=== PATIENT | female | born 1935 | race Caucasian/White ===

== ENCOUNTER 2016-12-07 00:46 | Inpatient (IN) | payer MEDICARE, OTHER ==
--- NOTE | ~2016-12-07 | CT71 ---
[facility] A Service of [facility] RADIOLOGY TEXT RESULTS PATIENT: ANSHU CHAN LOCATION: C3A 319-01 : 37 UNIT #: [id number] AGE: [address]: Randy Wolf MD SEX: F ORDER DR: [id number] [facility] [address] [facility]. [place], [place] [address] [id number] MR#: [id number] Acc #: [id number] NAME: ANSHU CHAN : 1935 SEX: F STUDY DATE/TIME: 12/07/2016 1:16 UNIT: CARLEEN ROOM: STUDY DESCRIPTION: CT Head Wo Contrast Attending Physician: Andrae Mcfadden M.D. Ordering Physician: Shauna Flores M.D. Primary Care Physician: Susan Abreu M.D. MEDICAL IMAGING REPORT This report is preliminary unless electronic signature is present EXAM CT head without IV contrast COMPARISON None. INDICATIONS 81-year-old female with posterior headache and increasing confusion after falling today. TECHNIQUE This CT exam was performed with one or more of the following radiation dose reduction techniques: automatic exposure control, adjustment of mA and/or kV according to patient size, and iterative reconstruction. FINDINGS Exam is limited by patient motion. Mastoid air cells, middle ears visualized paranasal sinuses are well-aerated. Evaluation for subtle acute fracture is limited by patient motion. No convincing evidence of acute fracture is seen. There are calcifications of the left vertebral artery as well as the bilateral cavernous internal carotid arteries extending into the intracranial segments bilaterally. No significant subcutaneous hematoma. There is mild cerebral and cerebellar volume loss. There is no mass effect. No abnormal extraaxial fluid collection. No evidence of acute intracranial hemorrhage. There is moderate chronic-appearing white matter periventricular small vessel ischemic change within the frontal lobes. No convincing evidence of cortical based ischemia. There are chronic-appearing lacunar infarcts suspected at the caudate heads bilaterally, possibly extending into the anterior limb of the internal capsules. There may also be tiny lacunar chronic infarcts of the lentiform nuclei. IMPRESSION [facility] A Service of [facility] RADIOLOGY TEXT RESULTS PATIENT: ANSHU CHAN LOCATION: C3A 319-01 : 37 UNIT #: [id number] AGE: [address]: Randy Wolf MD SEX: F ORDER DR: 1. Motion limited exam. No evidence of acute intracranial abnormality is seen. 2. There are arterial calcifications as well as gkgu-pk-knnrqopy cerebral and cerebellar volume loss with [id number]-[id number] chronic-appearing small vessel ischemic change. Dictated by... Marcelino Cisneros M.D. THIS IS AN ELECTRONICALLY VERIFIED REPORT Marcelino Cisneros M.D. at 12/11/2016 7:39 AM KOKO/mauricio TD: 12/07/2016 09:14 JOB #: [id number] MEDICAL IMAGING REPORT COPY
--- NOTE | ~2016-12-07 | HP ---
Unit #: [id number] #: [id number] Patient: ANSHU CHAN [id number] [address] [address] [id number] I MR#: [id number] NAME: ANSHU CHAN ROOM: 319 Age: 81 Sex: F Admission Date: 12/07/2016 : 1935 Attending Physician: Lan Weber M.D. Primary Care Physician: Susan Abreu M.D. HISTORY AND PHYSICAL CHIEF COMPLAINT Fall. HISTORY OF PRESENT ILLNESS The patient is a 81-year-old female with a history of hypertension brought to the emergency room status post fall. The patient was found to have a UTI with a potassium of 2.6. The patient had x-rays of the hip and that is negative for a fracture and the CT of the head is negative. The patient was scheduled to be discharged early this morning. However, at the time of discharge, the patient became more confused and disoriented. The patient has been admitted for the above reasons. The patient is unable to provide any further history. The patient stated the patient has three dogs at home and that she wants to go home to take care of the dogs. The patient denies any pain. She thinks she feels better and she has to go today. The patient denies any fever, chills, nausea and vomiting. The patient's history is obtained by speaking to the ER physician and the RN at the bedside. The patient's neighbor stated the patient has been with APS in the past and lives alone at home. No further history is available. PAST MEDICAL HISTORY History of hypertension. PAST SURGICAL HISTORY None. SOCIAL HISTORY No history of smoking, alcohol or any illicit drug abuse. FAMILY HISTORY Unavailable. ALLERGIES No known drug allergies. HOME MEDICATIONS From the record, she is on: 1. Norvasc. 2. Benazepril. 3. Detrol. 4. Meloxicam. 5. Zyrtec. 6. Zocor. 7. Singulair. Unit #: [id number] #: [id number] Patient: ANSHU CHAN REVIEW OF SYMPTOMS Unable to obtain as the patient is confused. PHYSICAL EXAMINATION VITAL SIGNS: Temperature 97.9. Pulse 99. Respiratory rate 16. Blood pressure 191/109. Sating 99% at room air. HEENT: Head: Atraumatic, normocephalic. Pupils equal, round and reactive to light and accommodation. Extraocular movements are intact. NECK: Supple. LUNGS: Clear to auscultation bilaterally. HEART: Regular rate and rhythm. ABDOMEN: Soft. Positive bowel sounds. EXTREMITIES: No cyanosis. No clubbing. No hip pain. NEUROLOGIC: The patient is alert and awake and confused. DIAGNOSTIC STUDIES LABORATORY: Glucose 112, BUN 12, creatinine 0.8, sodium 140, potassium 2.6, chloride 106, bicarb 26, calcium 9.2, total protein 7.1, albumin 4, AST 23, ALT 14, alkaline phosphatase 58. WBC 8.9, hemoglobin 13.9, hematocrit 40.5, platelets 261. UA shows 1+ leukocyte esterase and 25 to 50 urine WBC and negative bacteria. IMAGING: X-ray of the hip shows no convincing evidence of active fracture or dislocation of the left hip, although the evaluation is mildly limited by patient rotation as well as osteopenia, nonstandard positioning and body habitus related soft tissue attenuation. CT of the cervical spine shows no acute fracture or dislocation of the cervical spine. There are multilevel degenerative changes of the cervical spine as described in the body of the report. A 1.8 cm mixed density noted in the right lobe of the thyroid gland. A 1.4 cm density nodule which is favored to be in the left parotid gland possibly reflecting an adjacent abnormal lymph node. Bilateral cervical carotid artery calcifications. Interlobular septal thickening seen in both pulmonary apices. A finding which can be seen in CHF. CT of the head shows no evidence of acute intracranial abnormality seen. There are arterial calcifications as well as mild to moderate cerebral and cerebellar volume loss with mild to moderate chronic appearing small vessel ischemic changes. Chest x-ray shows there are no prior studies for comparison. There is mild pulmonary hyperexpansion and mild cardiomegaly but no acute abnormality seen. There is no consolidation, effusion or pneumothorax or suspicious nodules. ASSESSMENT 1. Altered mental status/confusion. 2. UTI. 3. Hypertension, uncontrolled. 4. Hyperkalemia. PLAN Admit the patient to the observation with telemetry. Continue with IV antibiotics, Rocephin. We will place on potassium protocol. The patient will resume on the home medications and we will have a Psyche evaluation and the social worker assistant for the home (1) and APS. We will repeat the labs again in the morning and further recommendations will follow as more lab results are available. Dictated by Lan Weber M.D. Unit #: [id number] #: [id number] Patient: ANSHU CHAN ROSA/fide TD: 12/07/2016 17:11 JOB #: [id number] HISTORY AND PHYSICAL X X HISTORY AND PHYSICAL
--- NOTE | ~2016-12-07 | CO ---
Unit #: [id number] #: [id number] Patient: LILIANE CHAN [id number] [facility] [address] [facility]. [place], [place] [address] [id number] I MR#: [id number] NAME: LILIANE CHAN ROOM: 319 Age: 81 Sex: F Admission Date: 12/09/2016 : 1935 Attending Physician: Marilyn Rodgers M.D. Primary Care Physician: Susan Abreu M.D. Consultation Date: 12/07/2016 CONSULTATION REPORT REASON FOR CONSULTATION Problem with memory and confusion. HISTORY OF PRESENT ILLNESS Liliane Chan is a 81-year-old white female, seen on 12/07/2016 in room 319 at [facility]. The patient was very sleepy and drowsy. The patient was unable to give any coherent information, confused. The patient information was obtained from the nursing staff. The patient was admitted with a fall. The patient also has a history of hypertension. The patient lives alone. No further history available. PAST PSYCHIATRIC HISTORY Unavailable. History of problem with memory. MEDICAL HISTORY AND MEDICATION HISTORY The patient is currently on Norvasc, benazepril, Detrol, meloxicam, Zyrtec, Zocor, Singulair. The patient was admitted with UTI, hypertension, hyperkalemia, altered mental status, confusion. FAMILY HISTORY AND SOCIAL HISTORY The patient has a poor support system. Lives alone. No history of any substance abuse. REVIEW OF SYSTEMS Complete review of systems is unremarkable. MENTAL STATUS EXAMINATION General appearance, the patient is dressed casually. Attention span and concentration were poor. Speech, slow. Orientation in place. Mood and affect, flat. Thought process, circumstantial. Thought content, guarded and paranoid. Recent and remote memory, poor. Language, able to name object. Fund of knowledge, poor. Insight and judgment, impaired. DIAGNOSES Psychiatric: 1. 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 2. Delirium, F05. 3. Major depressive disorder, recurrent, F33.2. Secondary diagnosis: Deferred. Medical diagnosis: Please refer to H and P. Stressors: Psychosocial stressors. Unit #: [id number] #: [id number] Patient: LILIANE CHAN ASSESSMENT AND PLAN 1. Supportive psychotherapy and psychoeducation were provided to the patient, but the patient is unable to comprehend much. 2. Recommending at this time to monitor the patient's mood and behavior closely. Advised to continue with current medication and add haloperidol 0.5 mg at bedtime for possible confusion, delirium. If needed, consider further adjustment of medication. We will continue to follow. Please feel free to call if any questions, telephone #[phone]. Dictated by... Julieth Abbasi/prisca TD: 12/10/2016 03:30 JOB #: [id number] CONSULTATION REPORT X Edis Luna MD X CONSULTATION REPORT
--- NOTE | ~2016-12-07 | CR150 ---
[facility] A Service of [facility] RADIOLOGY TEXT RESULTS PATIENT: ANSHU CHAN LOCATION: [facility] 319-01 : 37 UNIT #: [id number] AGE: [address]: Randy Wolf MD SEX: F ORDER DR: [id number] [place] [id number] [facility]. [place], [place] [address] [id number] E MR#: [id number] Acc #: [id number] NAME: ANSHU CHAN : 1935 SEX: F STUDY DATE/TIME: 12/07/2016 0:37 UNIT: CARLEEN ROOM: STUDY DESCRIPTION: CR Hip Min 2 Views Lt Attending Physician: Shauna Flores M.D. Ordering Physician: Shauna Flores M.D. Primary Care Physician: Susan Abreu M.D. MEDICAL IMAGING REPORT This report is preliminary unless electronic signature is present EXAM 2 views of the left hip COMPARISON None INDICATIONS 81-year-old female with left hip pain after falling tonight. FINDINGS Exam is limited by nonstandard positioning and patient rotation. There are bilateral pelvic calcifications favoring phleboliths. There are degenerative changes at the pubic symphysis. Exam is also limited by soft tissue attenuation and osteopenia. Left hip is anatomically aligned. There is moderate osteophyte formation of the left femoral head. No convincing evidence of acute fracture on this exam. IMPRESSION No convincing evidence of acute fracture or dislocation of the left hip, although evaluation is mildly limited by patient rotation as well as osteopenia, nonstandard positioning and body habitus related soft tissue attenuation. Dictated by... Marcelino Cisneros M.D. THIS IS AN ELECTRONICALLY VERIFIED REPORT Marcelino Cisneros M.D. at 12/10/2016 8:41 PM Jacey TD: 12/07/2016 08:02 JOB #: [id number] [facility] A Service [facility] RADIOLOGY TEXT RESULTS PATIENT: ANSHU CHAN LOCATION: [facility] 319-01 : 37 UNIT #: [id number] AGE: [address]: Randy Wolf MD SEX: F ORDER DR: MEDICAL IMAGING REPORT COPY
--- NOTE | ~2016-12-07 | ER ---
Unit #: [id number] #: [id number] Patient: ANSHU CHAN [id number] [address] [place], [place] [address] [id number] I MR#: [id number] NAME: ANSHU CHAN ROOM: 319 Sex: F Age: 81 : 1935 Service Date: 12/07/2016 Attending Physician: Lan Weber M.D. Admitting Physician: Lan Weber M.D. Primary Care Physician: Susan Abreu M.D. EMERGENCY DEPT PHYSICIAN NOTE Please see the written T sheet for the initial details of the encounter. Ms. Chan is a 81-year-old woman who was brought to the emergency department by EMS last night after a fall in which she sustained a hip injury. Initial evaluation confirmed that the patient complained of hip pain after a fall. She was uncertain if she also hit her head. The initial documented History and Physical also stated that the patient complained of some dysuria. As such, a hip x-ray, head CT, and a urinalysis were ordered. Head CT and cervical spine CT were negative. However, the patient's urine did show markers for infection. According to the record, the patient was in no apparent distress and seemed appropriate for discharge, and thus discharge was ordered and the patient was written a prescription for a urinary tract infection. However, this morning when the patient was to be discharge, the nurse noticed that the patient seemed somewhat confused, and the patient stated that she lived alone. Upon further questioning, it seemed that the patient was at a level of confusion that would preclude her from going home by herself. At this time, I was asked to reevaluate the patient for appropriateness for discharge. I independently examined the patient and conducted my own history and physical. The patient seemed very confused, was extremely tangential in her speech, talking about various unrelated topics, and required redirection multiple times. However, she was oriented to her environment and circumstances of her visit. She was unable to give critical details about family members that would be available to be contacted and even basic details about where she lived. As such, it was felt that the patient should be admitted for further workup of her apparent altered mental status, as well as to be treated for her previously diagnosed UTI. At this time, labs are ordered to further the workup of altered mental status. When the workup is completed, we will admit the patient to the hospital to continue her workup. Dictated by... Julieth Yo/paxton TD: 12/08/2016 18:52 JOB #: [id number] Unit #: [id number] #: [id number] Patient: ANSHU CHAN EMERGENCY DEPT PHYSICIAN NOTE X Andrae Mcfadden MD X EMERGENCY DEPARTMENT REPORT
--- NOTE | ~2016-12-07 | CO ---
Unit #: [id number] #: [id number] Patient: LILIANE CHAN [id number] [facility] [address] [facility]. [place], [place] [address] [id number] I MR#: [id number] NAME: LILIANE CHAN ROOM: 319 Age: 81 Sex: F Admission Date: 12/09/2016 : 1935 Attending Physician: Randy Wolf M.D. Primary Care Physician: Susan Abreu M.D. Consultation Date: 12/09/2016 CONSULTATION REPORT REASON FOR CONSULTATION Competency eval, history of confusion. HISTORY OF PRESENT ILLNESS Ms. Liliane Chan is a 81-year-old white female, seen in room 319 at [facility] on 12/09/2016. The patient was admitted to inpatient on 12/07/2016. The patient was admitted with a fall and confusion. The patient has a history of hypertension. The patient reports that she is feeling better and ready to go home. The patient has been with APS in the past and lives alone at home. The patient reports that she has a good support from her friends and reports ball dancing and enjoys that. The patient denied any use of drugs or alcohol. No history of any abuse. The patient was able to give any coherent history, but somewhat hard of hearing. PAST PSYCHIATRIC HISTORY Unremarkable. MEDICAL HISTORY Remarkable for history of hypertension. MEDICATION HISTORY The patient is on Norvasc, benazepril, Detrol, meloxicam, Zyrtec, Zocor, Singulair. ALLERGIES No known drug allergies. FAMILY HISTORY AND SOCIAL HISTORY The patient lives alone. Reports that she has a good support from family and friends. No history of any abuse. No history of any substance abuse. REVIEW OF SYSTEMS Complete review of systems unremarkable. MENTAL STATUS EXAMINATION General appearance, the patient is thin built, dressed casually, sitting comfortably in chair, unable to answer questions appropriately, made good eye contact. The patient's attention span and concentration was fair. The patient was somewhat hard of hearing and speak loudly. Speech was rapid and circumstantial. Oriented in place and person. Mood and affect were labile. Thought process was circumstantial. Thought content, the patient denied any thoughts of harming self or others or any auditory or Unit #: [id number] #: [id number] Patient: LILIANE CHAN visual hallucination. Recent and remote memory, fair to poor. The patient is having some difficulty with the daytime, year. Also noticed some problem with immediate and remote memory. Language, able to name object, repeat phrases. Fund of knowledge, fair. Insight and judgment, fair to slightly impaired. DIAGNOSES Psychiatric: 1. Delirium, F05, resolved. 2. Major neurocognitive disorder secondary to Alzheimer disease without behavioral disturbances, F02.80. Secondary diagnosis: Deferred. Medical diagnosis: Please refer to H and P. Stressors: Psychosocial stressors. ASSESSMENT/PLAN Based on the current examination, the patient does have deficits in recent and immediate memory, but the patient is alert and oriented in place. The patient understands about coming to the hospital and getting treatment. The patient at this time is able to make informed medical decision, unable to comment on competency issue as this is a legal matter. Recommending APS to investigate the home situation for the safety of patient as the patient will do better in a supervised living facility based on her medical condition. Please feel free to call if any questions, telephone # [phone]. At this time, the patient does not require any inpatient psychiatric treatment. Dictated by... Julieth Abbasi/percy TD: 12/10/2016 02:52 JOB #: [id number] CONSULTATION REPORT X Edis Luna MD X CONSULTATION REPORT
--- NOTE | ~2016-12-07 | EKG ---
PATIENT: ANSHU CHAN UNIT #: [id number] Ventricular Rate: 82 BPM Atrial Rate: 82 BPM P-R Interval: 186 ms QRS Duration: 74 ms Q-T Interval: 390 ms QTC Calculation(Bezet): 455 ms P Mesa: 46 degrees Calculated R Mesa: 43 degrees Calculated T Mesa: 50 degrees Diagnosis Line: Normal sinus rhythm Diagnosis Line: Normal ECG Diagnosis Line: No previous ECGs available Diagnosis Line: Confirmed by TRI ALANIS MD ([id number]) on Diagnosis Line: 12/08/2016 10:40:08 PM INTERPRETING MD: CASEY
--- NOTE | ~2016-12-07 | CR72 ---
[facility] A Service of [facility] RADIOLOGY TEXT RESULTS PATIENT: ANSHU CHAN LOCATION: [facility] 319-01 : 37 UNIT #: [id number] AGE: [address]: LJ LEPE MD SEX: F ORDER DR: [id number] [facility] [address] [facility]. [place], [place] [address] [id number] E MR#: [id number] Acc #: [id number] NAME: ANSHU CHAN : 1935 SEX: F STUDY DATE/TIME: 12/07/2016 8:32 UNIT: CARLEEN ROOM: STUDY DESCRIPTION: CR Chest Single View Portable Attending Physician: Andrae Mcfadden M.D. Ordering Physician: Andrae Mcfadden M.D. Primary Care Physician: Susan Abreu M.D. MEDICAL IMAGING REPORT This report is preliminary unless electronic signature is present EXAM Portable chest one-view 12/07/2016 HISTORY Short of air for 1 day. FINDINGS There are no prior studies for comparison. There is mild pulmonary hyperexpansion and mild cardiomegaly, but no acute abnormality is seen. There is no consolidation or effusion or pneumothorax or suspicious nodule. Dictated by... Edward Garcia M.D. THIS IS AN ELECTRONICALLY VERIFIED REPORT Edward Garcia M.D. at 12/08/2016 9:52 AM ED/nathan TD: 12/07/2016 11:48 JOB #: [id number] MEDICAL IMAGING REPORT COPY
--- NOTE | ~2016-12-07 | CT52 ---
[facility] A Service of [facility] [place] [facility] RADIOLOGY TEXT RESULTS PATIENT: ANSHU CHAN LOCATION: C3A 319-01 : 37 UNIT #: [id number] AGE: [address]: Randy Wolf MD SEX: F ORDER DR: [id number] [facility] [address] [facility]. [place], [place] [address] [id number] MR#: [id number] Acc #: [id number] NAME: ANSHU CHAN : 1935 SEX: F STUDY DATE/TIME: 12/07/2016 1:14 UNIT: CARLEEN ROOM: STUDY DESCRIPTION: CT Cervical Spine Wo Cont Attending Physician: Shauna Flores M.D. Ordering Physician: Shauna Flores M.D. Primary Care Physician: Susan Abreu M.D. MEDICAL IMAGING REPORT This report is preliminary unless electronic signature is present EXAM CT cervical spine without IV contrast COMPARISON None INDICATIONS 81-year-old female with neck pain after falling tonight. This CT exam was performed with one or more of the following radiation dose reduction techniques: automatic exposure control, adjustment of mA and/or kV according to patient size, and iterative reconstruction. FINDINGS There is a slightly heterogeneous appearing nodule in the right lobe of the thyroid gland measuring up to 1.8 cm. There are likely other low-density lesions within the left thyroid gland which are too small to characterize, largest of which measures up to 3 mm. There are bilateral cervical carotid artery calcifications. There is also a 1.4 cm nodule versus lymph node associated with the left parotid gland. Visualized airways widely patent. No acute findings in the pulmonary apices. There is interlobular septal thickening pulmonary apices, a finding which could reflect mild interstitial edema. There is dense calcification involving the aortic arch extending into the left subclavian and brachiocephalic arteries. Evaluation of the cervical spine is limited by motion. There is diffuse osteopenia. There is diffuse multilevel bilateral degenerative facet disease and mild multilevel uncinate hypertrophy bilaterally. These findings are causing severe neural foraminal narrowing on the right at C4-C5 and C5-C6. Cervical spine is anatomically aligned. There is no evidence of acute fracture. IMPRESSION 1. No acute fracture or dislocation of the cervical spine. Please note [facility]. [facility] A Service of [facility] RADIOLOGY TEXT RESULTS PATIENT: ANSHU CHAN LOCATION: C3A 319-01 : 37 UNIT #: [id number] AGE: [address]: Randy Wolf MD SEX: F ORDER DR: that evaluation of the lower cervical spine is limited by motion and therefore a subtle acute fracture would be difficult to exclude. There are multilevel degenerative changes of the cervical spine as described in the body of the report. These consist primarily of uncinate hypertrophy and degenerative facet disease. These findings are causing severe right-sided neural foraminal narrowing C4-C5 and C5-C6. 2. 1.8 cm mixed density nodule in the right lobe of the thyroid gland. Further evaluation with outpatient thyroid ultrasound is recommended. 3. 1.4 cm nodule which is favored be in the left parotid gland or possibly reflecting an adjacent abnormal lymph node. Consideration of further evaluation with ultrasound is recommended as a primary parotid neoplasm cannot be excluded. This would be easily amenable to ultrasound guided biopsy which should be considered. 4. Bilateral cervical carotid artery calcifications. 5. Interlobular septal thickening seen in both pulmonary apices, finding which can be seen in CHF. 1. Dictated by... Marcelino Cisneros M.D. THIS IS AN ELECTRONICALLY VERIFIED REPORT Marcelino Cisneros M.D. at 12/11/2016 7:28 AM Jacey TD: 12/07/2016 08:13 JOB #: [id number] MEDICAL IMAGING REPORT COPY
--- NOTE | ~2016-12-07 | DS ---
Unit #: [id number] #: [id number] Patient: ANSHU CHAN [id number] [address] [place], [place] [address] [id number] I MR#: [id number] NAME: ANSHU CHAN ROOM: 319 Age: 81 Sex: F Admission Date: 12/09/2016 : 1935 Discharge Date: 12/10/2016 Attending Physician: Randy Wolf M.D. Primary Care Physician: Susan Abreu M.D. DISCHARGE SUMMARY REASON FOR ADMISSION Fall. HISTORY OF PRESENT ILLNESS/HOSPITAL COURSE The patient is a 81-year-old female who resides at home alone with a history of hypertension, was brought to the emergency department status post fall. She was noted to have a UTI as well as a potassium up to 2.6. X-rays of the hip were negative for fracture. CT head was negative. The patient became confused and slightly disoriented through initial part of hospital stay and, therefore, laboratory studies were performed. Urinalysis was positive which later came back positive for Klebsiella UTI sensitive to Levaquin as well as Rocephin which she received while she was here. Secondary to confusional state as well as a foul odor and ill-kept state that patient presented with on day of admission, we became concerned about a possible home situation as well as underlying dementia. Therefore, we consulted Dr. Luna, psychiatry services. He said the patient was able to make informed medical decisions and she stated that she was just fine and she wished to go home. PT and OT evaluated the patient. Both services have cleared the patient and feel as though she is now currently at baseline and stable to be discharged home. Her hemoglobin at the time of discharge is 12. Laboratory studies reveal a normal BMP with potassium of 4.4. She will be reverted back to her home medications at time of discharge as well as a prescription for Levaquin 500 mg p.o. daily x7 days. FOLLOWUP Home health followup post discharge. FINAL DISCHARGE DIAGNOSES 1. Mental status changes secondary to Klebsiella urinary tract infection. 2. Status post fall at home with negative x-ray for fracture. 3. Hypertension. 4. Immobility syndrome. 5. Deconditioning. 6. Allergic rhinitis. 7. History of hypertension. 8. Hyperlipidemia. Unit #: [id number] #: [id number] Patient: ANSHU CHAN DISCHARGE MEDICATIONS 1. Detrol LA 4 mg p.o. daily. 2. Norvasc 5 mg p.o. daily. 3. Zocor 20 mg p.o. q.8. 4. Lotensin 10 mg p.o. daily. 5. Singulair 10 mg p.o. daily. 6. Levaquin 500 mg p.o. daily x7 days. DISCHARGE CONDITION Stable. DISCHARGE DISPOSITION Home. Dictated by... Julieth Mathias/skyler TD: 12/13/2016 05:35 JOB #: [id number] DISCHARGE SUMMARY X Randy Wolf MD X DISCHARGE SUMMARY
[~2016-12-07 00:46] MED LIST: AMLODIPINE BESYL5 MG PO; BENAZEPRIL HCL10 MG PO; DETROL LA PO; MELOXICAM15 MG PO; SINGULAIR PO; ZOCOR20 MG PO; ZYRTEC10 M2
[2016-12-07 03:47] LABS: URINE APPEARANCE CLEAR; URINE BILIRUBIN NEG (NEG); URINE BLOOD TRACE (NEG); URINE COLOR YELLOW; URINE GLUCOSE NEG (NEG); URINE KETONE TRACE (NEG); URINE LEUKOCYTE ESTERASE 1+ (NEG); URINE NITRATE NEG (NEG); URINE PROTEIN NEG (NEG); URINE SPECIFIC GRAVITY 1.009 (1.003-1.035); URINE UROBILINOGEN 0.2 MG/DL (NEG)
[2016-12-07 03:50] LABS: CULTURE INDICATED? YES; URBCS1 AUWI 0-2 /[HPF] (0-2); URINE BACTERIA AUWI NEG (NEGATIVE); URINE SQUAMOUS EPITHELIAL CELL NONE SEEN /[HPF]; UWBCS1 AUWI 25-50 (0-5)
[2016-12-07 03:53] LABS: URINE SOURCE CATH
[2016-12-07 09:30] LABS: BASOPHIL# 0.1 X10e3 (0-0.3); BASOPHIL% 0.8 % (0-2.5); EOSINOPHIL# 0.1 X10e3 (0-0.7); EOSINOPHIL% 1.3 % (0.0-7.0); HEMATOCRIT 40.5 % (35.0-45.0); HEMOGLOBIN 13.9 gm/dL (12.0-16.0); LYMPHOCYTE# 1.7 X10e3 (1.0-3.5); LYMPHOCYTE% 19.5 % (17.0-45.0); MEAN CELL VOLUME 85.1 FL (83-96); MEAN CORPUSCULAR HEMOGLOBIN 29.1 PG (28-34); MEAN CORPUSCULAR HGB CONC 34.3 g/dL (30-36); MEAN PLATELET VOLUME 7.8 FL (6.5-11.5); NEUTROPHIL% 67.4 % (40-75); PLATELET COUNT 261 X10e3 (140-420); RED BLOOD COUNT 4.76 X10e (3.90-5.30); RED CELL DISTRIBUTION WIDTH 14.5 % (11.0-15.5); WHITE BLOOD COUNT 8.9 X10e3 (4.0-10.5)
[2016-12-07 09:33] LABS: DIFF IND NO
[2016-12-07 10:20] LABS: ALKALINE PHOSPHATASE 58 U/L (32-92); ALT (SGPT) 14 U/L (10-40); AST (SGOT) 23 U/L (10-42); BILIRUBIN, DIRECT 0.2 mg/dL (0.0-0.2); BILIRUBIN,INDIRECT 1.1 mg/dL (0.0-0.9); BILIRUBIN,TOTAL 1.3 mg/dL (0.2-2.0); BLOOD UREA NITROGEN 12 mg/dL (9-23); CALCIUM SERUM 9.2 mg/dL (8.4-10.2); CARBON DIOXIDE 26 mmol/L (22-31); CHLORIDE 106 mmol/L (100-111); CREATININE SERUM 0.8 mg/dL (0.6-1.4); GLOM FILT RATE Estimated ABOVE60 mL/min (>60); GLUCOSE FASTING 112 mg/dL (70-110); PROTEIN TOTAL SERUM 7.1 g/dL (6.0-8.3); SODIUM 140 mmol/L (135-145)
[2016-12-07 10:22] LABS: POTASSIUM 2.6 mmol/L (3.5-5.1)
[2016-12-08 06:33] LABS: MAGNESIUM 2.1 mg/dL (1.6-3.0); POTASSIUM 4.4 mmol/L (3.5-5.1)
[2016-12-09 03:47] LABS: HEMATOCRIT 34.8 % (35.0-45.0); MEAN CORPUSCULAR HEMOGLOBIN 29.2 PG (28-34); MEAN CORPUSCULAR HGB CONC 33.9 g/dL (30-36); MEAN PLATELET VOLUME 7.9 FL (6.5-11.5); RED BLOOD COUNT 4.04 X10e (3.90-5.30); RED CELL DISTRIBUTION WIDTH 14.1 % (11.0-15.5); WHITE BLOOD COUNT 7.1 X10e3 (4.0-10.5)
[2016-12-09 03:52] LABS: HEMOGLOBIN 11.8 gm/dL (12.0-16.0)
[2016-12-09 04:12] LABS: CALCIUM SERUM 8.4 mg/dL (8.4-10.2); GLOM FILT RATE Estimated 56.8 mL/min (>60); MAGNESIUM 2.3 mg/dL (1.6-3.0); POTASSIUM 4.4 mmol/L (3.5-5.1)
[2016-12-10 06:00] LABS: HEMATOCRIT 35.8 % (35.0-45.0); MEAN CELL VOLUME 86.7 FL (83-96); MEAN CORPUSCULAR HGB CONC 33.4 g/dL (30-36); MEAN PLATELET VOLUME 7.9 FL (6.5-11.5); RED BLOOD COUNT 4.13 X10e (3.90-5.30); RED CELL DISTRIBUTION WIDTH 14.3 % (11.0-15.5); WHITE BLOOD COUNT 6.2 X10e3 (4.0-10.5)
[2016-12-10 06:44] LABS: BLOOD UREA NITROGEN 15 mg/dL (9-23); BUN/CREATININE RATIO 21.42; CALCIUM SERUM 8.9 mg/dL (8.4-10.2); CARBON DIOXIDE 26 mmol/L (22-31); CHLORIDE 107 mmol/L (100-111); CREATININE SERUM 0.7 mg/dL (0.6-1.4); GLOM FILT RATE Estimated ABOVE60 mL/min (>60); GLUCOSE FASTING 84 mg/dL (70-110); POTASSIUM 4.4 mmol/L (3.5-5.1); SODIUM 140 mmol/L (135-145)
[2016-12-10] MEDS ORDERED: ACETAMINOPHEN650 M1 PO (16:10)
[2016-12-10] MEDS ORDERED: LEVAQUIN PO (16:12)
== END 2016-12-10 17:10 | disposition home or self-care (01) | DRG 689 ==
LOC: CED 00:46 → CEDOF 11:58 → C3A PCU 12-09 15:55
PROVIDERS: Emergency Medicine; Family Medicine; Internal Medicine
DX: N39.0 Urinary tract infection, site not specified (principal); G92 Toxic encephalopathy; F33.2 Major depressive disorder, recurrent severe without psychotic features; E87.5 Hyperkalemia; G30.9 Alzheimer's disease, unspecified; F05 Delirium due to known physiological condition; F02.81 Dementia in other diseases classified elsewhere, unspecified severity, with behavioral disturbance; I10 Essential (primary) hypertension; W19.XXXA Unspecified fall, initial encounter; M62.3 Immobility syndrome (paraplegic); B96.1 Klebsiella pneumoniae [K. pneumoniae] as the cause of diseases classified elsewhere; J30.9 Allergic rhinitis, unspecified; E78.5 Hyperlipidemia, unspecified
CPT/HCPCS: 36415; 70450; 71010; 72125; 73502; 80048; 80076; 81003; 82947; 83735; 84132; 85025; 85027; 87086; 87088; 87186; 93005; 94760; 96374; 97110; 97116; 97161; 97165; 97530; 97532; 97535; 99285; G8978-GP; G8979-GP; G8987-GO; G8988-GO; J0696; J1650

== ENCOUNTER 2017-01-02 16:49 | Inpatient (IN) | payer MEDICARE, OTHER ==
--- NOTE | ~2017-01-02 | CO ---
Unit #: [id number] #: [id number] Patient: LILIANE CHAN [id number] [facility] [address] [facility]. [place], [place] [address] [id number] I MR#: [id number] NAME: LILIANE CHAN ROOM: 215 Age: 81 Sex: F Admission Date: 01/02/2017 : 1935 Attending Physician: Randy Wolf M.D. Primary Care Physician: Susan Abreu M.D. Consultation Date: 01/09/2017 CONSULTATION REPORT REASON FOR CONSULTATION Followup discussion. HISTORY OF PRESENT ILLNESS Ms. Liliane Chan is a 81-year-old female seen in room 215, bed 1, at [facility]. Patient has a sitter. According to staff, the patient was aggressive toward one-on-one staff, as well as having problems with the memory, mood lability, paranoia but patient eating good and sleeping good. Denied any thoughts of harming self or others. PAST PSYCHIATRIC HISTORY/COMPLETE REVIEW OF SYSTEM Unremarkable. MENTAL STATUS EXAMINATION General appearance - dressed casually, lying comfortably in bed. Attention span - concentration was poor. Speech - loud. Oriented in place and person. Mood and affect was labile. Thought process - circumstantial. Thought content - guarded and paranoid. Recent and remote memory - Poor. Language - Able to name objects, repeat phrases. Fund of knowledge - Fair to good, slightly impaired Insight and judgment - Fair to slightly impaired. DIAGNOSIS PSYCHIATRIC: Probable major neurocognitive disorder secondary to (1) disease with behavioral disturbances (F02.80). ASSESSMENT/PLAN 1. Recommending at this time to continue with the current treatment. At this time supportive psychotherapy and psychoeducation provided to the patient. 2. Patient has poor insight and poor judgment based on the current assessment. We will continue with the current treatment and a sitter for the patient's safety. [facility] is currently working and looking for appropriate placement for the patient for the patient's safety. Please feel free to call with any questions, telephone number . Dictated by... Edis Luna M.D. Unit #: [id number] #: [id number] Patient: LILIANE CHAN SZC/ts TD: 01/12/2017 15:31 JOB #: [id number] CONSULTATION REPORT Page 1 of 1 X Edis Luna MD CONSULTATION REPORT
--- NOTE | ~2017-01-02 | CO ---
Unit #: [id number] #: [id number] Patient: LILIANE CHAN [id number] [facility] [address] [facility]. [place], [place] [address] [id number] I MR#: [id number] NAME: LILIANE CHAN ROOM: 215 Age: 81 Sex: F Admission Date: 01/02/2017 : 1935 Attending Physician: Lan Weber M.D. Primary Care Physician: uSsan Abreu M.D. Consultation Date: 01/22/2017 CONSULTATION REPORT REASON FOR CONSULTATION Followup. HISTORY OF PRESENT ILLNESS Ms. Liliane Chan is a 81-year-old white female, seen on 01/22/2017 in room 215 at [facility]. The patient was diagnosed with dementia, confusion; however, the patient continues to be delusional, paranoid, mood lability, needing one-to-one monitoring. The patient is compliant with medication. Vital signs; temperature 97.8, pulse 86, respirations 18, blood pressure 159/99, oxygen saturation 98%. The patient seemed somewhat guarded and paranoid, but no aggression. The patient denied any suicidal or homicidal ideation. Continues to have problem with confusion, problem with memory. REVIEW OF SYSTEMS Complete review of systems is unremarkable except as mentioned above. MENTAL STATUS EXAMINATION General appearance, the patient dressed in hospital attire, sitting comfortably in chair. Attention span and concentration were fair. Speech, rapid. Oriented in self and place. Mood and affect, labile. Thought process, circumstantial. Thought content, guarded and paranoid. The patient was concerned and paranoid about the sitter somewhat delusional, but denied any thoughts of harming self or others. Recent and remote memory, poor. Language, intact. Fund of knowledge, poor. Insight and judgment, fair to slightly impaired. DIAGNOSIS Psychiatric: Major neurocognitive disorder secondary to Alzheimer disease with behavioral disturbances, F02.81. ASSESSMENT/PLAN 1. Supportive psychotherapy and psychoeducation provided to the patient. 2. Educated about benefits and side effects of medication and course and prognosis of illness. 3. Advised to continue with current medication and one-to-one monitoring for safety of the patient and currently working with the case aide about placement, please feel free to call if any questions, telephone #[phone]. We will make further changes in medication if needed. Dictated by... Edis Luna M.D. Unit #: [id number] #: [id number] Patient: LILIANE CHAN WILLIAMS/modl TD: 01/24/2017 01:40 JOB #: [id number] CONSULTATION REPORT Page 1 of 1 X Edis Luna MD X CONSULTATION REPORT
--- NOTE | ~2017-01-02 | CO ---
Unit #: [id number] #: [id number] Patient: LILIANE CHAN [id number] [facility] [address] [facility] [facility]. [place], [place] [address] [id number] I MR#: [id number] NAME: LILIANE CHAN ROOM: 215 Age: 81 Sex: F Admission Date: 01/02/2017 : 1935 Attending Physician: Randy Wolf M.D. Primary Care Physician: Susan Abreu M.D. Consultation Date: 01/10/2017 CONSULTATION REPORT REASON FOR CONSULTATION Followup. DISCUSSION Miss Liliane Chan is a 81-year-old female seen on January 10, 2017, in room 215 at [facility]. Patient has a sitter. Compliant, cooperative, re-directable. Mood was labile. Patient still wants to go home but is currently on 72-hour hold. Patient has poor insight and poor judgment. Currently, APS is working on home situation. Patient's guardianship petition hearing is today. Patient has a sitter. Mood was labile with no aggression. REVIEW OF SYSTEMS Complete review of systems unremarkable. MENTAL STATUS EXAMINATION General appearance: Patient is dressed casually and lying comfortably in bed. Attention span and concentration were poor. Speech loud. Oriented in place and person. Mood and affect was labile. Thought process was circumstantial and thought content guarded and paranoid but denied any thoughts of harming self or others. Recent and remote memory poor. Language: Able to name objects and repeat phrases. Fund of knowledge fair to poor. Insight and judgment fair to slightly impaired. DIAGNOSIS PSYCHIATRIC: Major neurocognitive disorder secondary to Alzheimer disease with behavioral disturbances F02.81. ASSESSMENT AND PLAN 1. Supportive psychotherapy and psychoeducation provided to patient. 2. Advised to continue with current medication. If needed, consider further adjustment of medication. We will wait for Adult Protective Services report and consider appropriate supervised placement for the patient. 3. Please feel free to call with any questions at [phone]. Dictated by... Julieth Abbasi TD: 01/12/2017 15:35 JOB #: [id number] Unit #: [id number] #: [id number] Patient: NIKO CHANRICIA CONSULTATION REPORT Page 1 of 1 X Edis Luna MD CONSULTATION REPORT
--- NOTE | ~2017-01-02 | CO ---
Unit #: [id number] #: [id number] Patient: LILIANE CHAN [id number] [facility] [address] [facility]. [place], [place] [address] [id number] I MR#: [id number] NAME: LILIANE CHAN ROOM: 215 Age: 81 Sex: F Admission Date: 01/02/2017 : 1935 Attending Physician: Lan Weber M.D. Primary Care Physician: Susan Abreu M.D. Consultation Date: 01/21/2017 CONSULTATION REPORT DISCUSSION Ms. Liliane Chan is a 81-year-old female, seen on 01/21/2017 in room 215 in [facility]. The patient was compliant, cooperative, somewhat anxious, nervous, withdrawn, poor appetite. The patient's vital signs; temperature 97.7, pulse 94, respirations 16, blood pressure 147/67, oxygen saturation 97%. The patient did not require any seclusion or holding, but still mood lability, paranoia, guarded, problem with memory, needing redirection, needing one-to-one monitoring, impulsive behavior. REVIEW OF SYSTEMS Complete review of systems unremarkable. MENTAL STATUS EXAMINATION General appearance; the patient dressed casually in hospital attire, sad, depressed, flat affect. Attention span and concentration, fair. Speech, rapid. Oriented in place and person. Mood and affect were labile. Thought process, circumstantial. Thought content, guarded and paranoid, but denied any thoughts of harming self or others. Recent and remote memory, poor. Language, intact. Fund of knowledge, fair. Insight and judgment, fair to slightly impaired. 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 ASSESSMENT/PLAN 1. Supportive psychotherapy and psychoeducation provided to the patient. 2. Educated about benefits and side effects of medication and course and prognosis of illness. 3. Advised to continue with current medication and therapeutic protocol and one-to-one monitoring for the patient's safety. Also discussed case with case managers about placement. Please feel free to call if any questions telephone #[phone]. Dictated by... Edis Luna M.D. WILLIAMS/prisca TD: 01/22/2017 05:38 JOB #: [id number] Unit #: [id number] #: [id number] Patient: LILIANE CHAN CONSULTATION REPORT Page 1 of 1 X Edis Luna MD CONSULTATION REPORT
--- NOTE | ~2017-01-02 | CO ---
Unit #: [id number] #: [id number] Patient: LILIANE CHAN [id number] [facility] [address] [facility]. [place], [place] [address] [id number] I MR#: [id number] NAME: LILIANE CHAN ROOM: 215 Age: 81 Sex: F Admission Date: 01/02/2017 : 1935 Attending Physician: Nguyễn Ramirez M.D. Primary Care Physician: Susan Abreu M.D. Consultation Date: 01/15/2017 CONSULTATION REPORT REASON FOR CONSULTATION Followup. DISCUSSION Ms. Liliane Chan is a 81-year-old female, seen in room 215, bed 1 at [facility] on 01/15/2017. The patient was pleasant and cooperative during interview. The patient has a sitter. The patient has a history of aggressive behavior, impulsive behavior but currently doing fine. The patient's vital signs stable temperature 98.2, pulse 139, respirations 16, blood pressure 143/78, oxygen saturation 100%. The patient continues to have problem with memory, but cooperative on the unit. The patient has a history of dementia, so poor insight, poor judgment, problem with memory. The patient did not show any aggressive behavior. REVIEW OF SYSTEMS Complete review of systems unremarkable. MENTAL STATUS EXAMINATION General appearance; the patient dressed casually. Attention span and concentration, fair. Speech was rapid in rate. Oriented in place and person. Mood and affect were labile. Thought process was circumstantial. Thought content, guarded, paranoid, but denied any thoughts of harming self or others. Recent and remote memory, poor. Language, able to name object and repeat phrases. Fund of knowledge, fair to slightly impaired. Insight and judgment, slightly impaired. DIAGNOSIS Psychiatric: Major neurocognitive disorder secondary to Alzheimer disease with behavioral disturbances, F02.81. ASSESSMENT AND PLAN 1. Supportive psychotherapy and psychoeducation provided to the patient. 2. Advised to continue with current medication. Educated about benefits and side effects of medication and course and prognosis of illness. At this time, currently working with Adult Protective Services and with the social work job titles for appropriate placement of the patient. The patient unable to return home, also working on guardianship. The patient is compliant with medication. Currently on Remeron 15 mg at bedtime, Ativan is 1 mg q.4 p.r.n. for severe agitation. We will continue to follow. If needed, consider further adjustment of medication. Please feel free to call if any questions, telephone #[phone]. Unit #: [id number] #: [id number] Patient: LILIANE CHAN Dictated by... Julieth Abbasi/prisca TD: 01/16/2017 23:52 JOB #: [id number] CONSULTATION REPORT Page 1 of 1 X Edis Luna MD X CONSULTATION REPORT
--- NOTE | ~2017-01-02 | DS ---
Unit #: [id number] #: [id number] Patient: ANSHU CHAN [id number] [address] [address] [id number] I MR#: [id number] NAME: ANSHU CHAN ROOM: 215 Age: 81 Sex: F Admission Date: 01/02/2017 : 1935 Discharge Date: 01/12/2017 Attending Physician: Nguyễn Ramirez M.D. Primary Care Physician: Susan Abreu M.D. DISCHARGE SUMMARY TRANSITION OF CARE SUMMARY REASON FOR ADMISSION Mental status change. The patient found in fecal matter at home. HISTORY OF PRESENT ILLNESS The patient is a 81-year-old female with history of dementia and recent hospital admission, who apparently was found at home after neighbor had called in, the patient was found down present in fecal matter. Apparently, her home had been recently condemned and she refused to leave and she was found with numerous pets throughout the home. She was subsequently admitted for the same and noted to have a positive urinalysis and was appropriately treated with IV antibiotics while she was here in the hospital. At this point in time, we are planning further disposition as currently her health is condemned and she is not able to make medical decisions on her own accord. She has been evaluated by Dr. Luna and through legal channels power of shadow graph weight operator will be assessed as well as guardianship. Once that is achieved, the patient will be transitioned into long-term care likely over the next few days. Her blood pressure is mildly elevated and she was initiated on Norvasc while here. Off and on she has had increased anxiety, agitation, and she has been treated with both p.o. and IM medications per the discretion of Dr. Luna. CURRENT CLINICAL DIAGNOSES 1. Mental status change, acute delirium on baseline dementia. 2. Poor social support/homelessness. 3. Urinary tract infection, treated. 4. Hypertension. 5. Dementia. 6. Failure to thrive. Discharge disposition to be determined by one of my associates at the time of discharge. Dictated by... Randy Wolf M.D. Unit #: [id number] #: [id number] Patient: ANSHU CHAN ISN/modl TD: 01/13/2017 06:37 JOB #: [id number] DISCHARGE SUMMARY Page 1 of 1 X Randy Wolf MD DISCHARGE SUMMARY
--- NOTE | ~2017-01-02 | EKG ---
PATIENT: ANSHU CHAN UNIT #: [id number] Ventricular Rate: 93 BPM Atrial Rate: 92 BPM QRS Duration: 76 ms Q-T Interval: 384 ms QTC Calculation(Bezet): 477 ms Calculated R Ray[place]: 47 degrees Calculated T [place]: 63 degrees Diagnosis Line: Baseline wander Sinus rhythm with 1st degree A-V Diagnosis Line: block Diagnosis Line: Abnormal ECG Diagnosis Line: When compared with ECG of 07-DEC-2016 08:24, Diagnosis Line: Junctional rhythm has replaced Sinus rhythm Diagnosis Line: Confirmed by MARNI PALMA MD ([id number]) on 01/06/2017 Diagnosis Line: 10:38:50 PM INTERPRETING MD: MINERVA DUMONT
--- NOTE | ~2017-01-02 | FU ---
[facility] Nutrition Therapy DATE: 01/20/17 Patient: ANSHU CHAN Physician: WILBUR Address: [address] [place] [address] Room/Bed: [address] [place] [address], Zip: [place] [address] Admit Date: 01/02/17 Date of : [birth year] Height: 5 2 Weight: 129 58.96 NUTRITION MONITORING/FOLLOW-UP: Reason: PT SEEN FOR FOLLOW-UP DX: UTI, LOW K+, CONFUSION Anthropometrics: 5'2", WT: 129# (59 KG) (ADMIT WEIGHT), BMI: 23.6 Labs: NO RECENT LABS Meds: ZOFRAN, REMERON, NACL, LAXATIVE, CYANOCOBALAMIN I&O's: 480/5, 1 BM NOTED Skin: ISSUES PREVIOUSLY NOTED Estimated Nutrition Needs: N/A Assessment: CHART REVIEWED AND EVENTS NOTED. PT SEEN FOR FOLLOW-UP. PT REPORTS GOOD PO INTAKE AND APPETITE, NO C/O N/V/D. SITTER AT BEDSIDE REPORTED PT HAVING A "HEARTY APPETITE", ATE 100% BREAKFAST THIS AM. OF NOTE, PT NOTED TO BE CONFUSED AT TIME OF VISIT. NO QUESTIONS AT THIS TIME. RD TO REMAIN AVAILABLE. PER CHART, AWAITING PLACEMENT AT THIS TIME. Dx: INABILITY TO MANAGE SELF-CARE R/T CLINICAL CONDITION, PMH AEB AWAITING PLACEMENT, NEED FOR SITTER. -ACTIVE ADEQUATE NUTRIENT INTAKE R/T GOOD APPETITE AEB SITTER AND PT REPORT ABOVE. Intervention: 1. REGULAR DIET + DOUBLE PORTIONS 2. RUBEN ENSURE TID Monitoring, Evaluation and Goals: GOALS MET 1. ORAL INTAKE; CONSUME >50% OF MEALS AND SUPPLEMENTS W/NO C/O N/V/D 2. WEIGHTS; PROMOTE WEIGHT MAINTENANCE MONITOR: -PO INTAKE/APPETITE -WEIGHTS -SUPPLEMENT INTAKE Recommendations: 1. CONTINUE TO ENCOURAGE PO AND SUPPLEMENT INTAKE -CONSIDER CHANGING CURRENT DIET ORDER TO [facility]: 01/20/17 Patient: ANSHU CHAN Physician: WILBUR Address: [address] [place] [address] Room/Bed: [address] [place] [address], Zip: [place] [address] Admit Date: 01/02/17 Date of : [birth year] Height: 5 2 Weight: [address] WILL F/U PER PROTOCOL PT IS MILDLY COMPROMISED Respectfully, KOLTON VILLA MS, RD, LD [facility] cc: client file
--- NOTE | ~2017-01-02 | CO ---
Unit #: [id number] #: [id number] Patient: LILIANE CHAN [id number] [facility] [address] [facility]. [place], [place] [address] [id number] I MR#: [id number] NAME: LILIANE CHAN ROOM: 215 Age: 81 Sex: F Admission Date: 01/02/2017 : 1935 Attending Physician: Randy Wolf M.D. Primary Care Physician: Susan Abreu M.D. Consultation Date: 01/06/2017 CONSULTATION REPORT REASON FOR CONSULTATION Confusion. HISTORY OF PRESENT ILLNESS Miss Liliane Chan is a 81-year-old white female seen on January 06, 2017, in room 215, bed 1, at [facility]. Patient was admitted on January 02 with UTI, low potassium, and confusion. Patient lives with her two dogs. Patient was pleasant and cooperative during interview. Patient reported that she is feeling better. She was able to answer questions appropriately. Reports some decrease in confusion. Denied any thoughts of harming self or others and denied any psychotic symptoms. But according to the family, patient was found lying on the floor in dog feces. But patient explained that she was just sitting on the floor and was not passed out. According to the nursing staff and the reports, law enforcement had condemned patient's home. Patient was admitted for the second time with similar complaints. APS is currently involved. PAST PSYCHIATRIC HISTORY History of dementia. PAST MEDICAL HISTORY 1. Hypertension. 2. Hyperlipidemia. 3. Degenerative joint disease. 4. Asthma. 5. Dementia. ALLERGIES No known drug allergies. MEDICATIONS Albuterol inhaler. FAMILY HISTORY/SOCIAL HISTORY Patient lives by herself. Poor support system. No history of any abuse or substance abuse. REVIEW OF SYSTEMS A complete review of system is unremarkable. MENTAL STATUS EXAMINATION General appearance: Patient is thin built and casually dressed. Attention span and concentration fair. Speech rapid. Oriented in place Unit #: [id number] #: [id number] Patient: LILIANE CHAN and person. Mood and affect were labile. Thought process was circumstantial and thought content guarded. She denied any thoughts of harming self or others or any psychotic symptoms. Recent and remote memory fair to poor. Using a lot of confabulation. Language fair. Fund of knowledge fair. Insight and judgment are fair to slightly impaired. DIAGNOSIS PSYCHIATRIC: Probable major neurocognitive disorder secondary to Alzheimer disease without behavioral disturbances, F02.80, and delirium, resolved, F05. SECONDARY DIAGNOSIS: Deferred. STRESSORS Psychosocial stressors. ASSESSMENT AND PLAN 1. Supportive psychotherapy and psychoeducation provided to patient. 2. Advised patient that at this time, patient to be living in a supervised living facility for safety, although patient does not agree at this time. Given patient's current circumstances, recommending Adult Protective Services to evaluate home situation and go accordingly. 3. Patient is to continue with current medication at this time. 4. Please feel free to call with any questions, . Dictated by... Edis Luna M.D. WILLIAMS/paxton TD: 01/07/2017 21:10 JOB #: [id number] CONSULTATION REPORT Page 1 of 1 X Edis Luna MD X CONSULTATION REPORT
--- NOTE | ~2017-01-02 | CO ---
Unit #: [id number] #: [id number] Patient: LILIANE CHAN [id number] [address] [place], [place] [address] [id number] I MR#: [id number] NAME: LILIANE CHAN ROOM: 215 Age: 81 Sex: F Admission Date: 01/02/2017 : 1935 Attending Physician: Randy Wolf M.D. Primary Care Physician: Susan Abreu M.D. Consultation Date: 01/07/2017 CONSULTATION REPORT REASON FOR CONSULTATION Followup. DISCUSSION Ms. Lilaine Chan is a 81-year-old white female, seen on 01/07/2017 at [facility] in room 215, bed 1. Ms. Momin was seen in room 215. The patient's mood was sad, dysphoric, irritable. The patient was eating her breakfast with the help of the staff. The patient has one-to-one staff at all time for the patient's safety. The patient continues to exhibit poor judgment and poor insight. The patient reports that she would like to go home and she does not understand about the home situation as currently her home is scheduled to be condemned by the police because of the home condition. APS is currently investigating. Her home condition was pretty bad according to the reports. farm forestry and garden workers is currently working on guardianship at this time and also to find her appropriate placement for the patient. The patient seems unable to take care of herself putting a danger about her safety. The patient was redirectable and cooperative. No aggressive behavior. REVIEW OF SYSTEMS Complete review of systems is unremarkable. MENTAL STATUS EXAMINATION General appearance, the patient dressed casually in hospital attire, lying in a propped up position. Attention span and concentration, poor. Speech, rapid. Oriented in place and person. Mood and affect were labile. Thought process, circumstantial. Thought content, guarded, paranoid, but denied any thoughts of harming self or others. Recent and remote memory, poor. Language, able to name object. Fund of knowledge, fair to slightly impaired. Insight and judgment, fair to slightly impaired. DIAGNOSES Psychiatric: 1. 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 Secondary diagnosis: Deferred. Medical diagnosis: Please refer to H and P. Stressors: Psychosocial stressor. ASSESSMENT/PLAN 1. Supportive psychotherapy and psychoeducation provided to the patient. Unit #: [id number] #: [id number] Patient: LILIANE CHAN 2. Based on the current examination, the patient is unable to make any informed medical decision at this time and will be benefitted with having a power of management expert. farm forest[employer] garden workers is currently working on that and also recommending the patient to be in a supervised living situation based on her last living condition. Please feel free to call if any questions, telephone #[phone]. Dictated by... Julieth Abbasi/prisca TD: 01/08/2017 04:10 JOB #: [id number] CONSULTATION REPORT Page 1 of 1 X Edis Luna MD X CONSULTATION REPORT
--- NOTE | ~2017-01-02 | CO ---
Unit #: [id number] #: [id number] Patient: LILIANE CHAN [id number] [facility] [address] [facility]. [place], [place] [address] [id number] I MR#: [id number] NAME: LILIANE CHAN ROOM: 215 Age: 81 Sex: F Admission Date: 01/02/2017 : 1935 Attending Physician: Lan Weber M.D. Primary Care Physician: Susan Abreu M.D. Consultation Date: 01/23/2017 CONSULTATION REPORT REASON FOR CONSULTATION Followup. DISCUSSION Ms. Liliane Chan is a 81-year-old female, seen in room 215, bed 1 at [facility] on 01/23/2017. The patient has a sitter. The patient continues to be paranoid, agitated, aggressive, impulsive, needing redirection. The patient has poor insight and poor judgment, compliant with medication. The patient was throwing food, agitated, and received p.r.n. Haldol. REVIEW OF SYSTEMS Complete review of systems is unremarkable. MENTAL STATUS EXAMINATION General appearance, the patient dressed casually. Attention span and concentration were poor. Speech, rapid. Oriented in time, place, and self. Mood and affect, labile. Thought process, circumstantial. Thought content; guarded, paranoid, delusional. Recent and remote memory, poor. Language, fair. Fund of knowledge, impaired. Insight and judgment, impaired. DIAGNOSES 1. 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 2. Psychosis, not otherwise specified, F29.0. ASSESSMENT AND PLAN 1. Supportive psychotherapy and psychoeducation provided to the patient. 2. Educated about benefits and side effects of medication and course and prognosis of illness. 3. Recommending at this time to add trazodone 50 mg at bedtime for sleep and Risperdal 1 mg b.i.d. for psychotic symptom. We will continue to follow. Please feel free to call if any questions, telephone #[phone]. Dictated by... Edis Luna M.D. WILLIAMS/prisca TD: 01/25/2017 04:31 JOB #: [id number] Unit #: [id number] #: [id number] Patient: LILIANE CHAN CONSULTATION REPORT Page 1 of 1 X Edis Luna MD CONSULTATION REPORT
--- NOTE | ~2017-01-02 | CO ---
Unit #: [id number] #: [id number] Patient: LILIANE CHAN [id number] [facility] [address] [facility]. [place], [place] [address] [id number] I MR#: [id number] NAME: LILIANE CHAN ROOM: 215 Age: 81 Sex: F Admission Date: 01/02/2017 : 1935 Attending Physician: Lan Weber M.D. Primary Care Physician: Susan Abreu M.D. Consultation Date: 01/20/2017 CONSULTATION REPORT REASON FOR CONSULTATION Followup. DISCUSSION Ms. Liliane Chan is a 81-year-old female, seen on 01/20/2017 in room 215, bed 1 at [facility]. The patient has a sitter. The patient slept well, eating good, still oriented in place and person. Mood and affect were labile. The patient did not require any seclusion, holding, or any p.r.n. medication. The patient still needing redirection, impulsive, mood lability, problem with memory. REVIEW OF SYSTEMS Complete review of systems is unremarkable. MENTAL STATUS EXAMINATION General appearance; the patient dressed casually, sitting in a propped up position, eating her breakfast. Attention span and concentration, fair. Speech, rapid. Oriented in place and person. Mood and affect, labile. Thought process, circumstantial. Thought content, guarded, paranoid, but denied any thoughts of harming self or others. Recent and remote memory, poor. Language, able to name object and repeat phrases. Fund of knowledge, fair to slightly impaired. Insight and judgment, slightly impaired. DIAGNOSIS Psychiatric: Major neurocognitive disorder secondary to Alzheimer disease with behavior disturbances, F02.81. ASSESSMENT/PLAN 1. Supportive psychotherapy and psychoeducation provided to the patient. 2. Educated about benefits and side effects of medication and course and prognosis of illness. 3. Continue with a sitter for the patient's safety. accounting manager controller is currently working on discharge planning. No court date has been set for guardianship so far. Still working on guardianship as well as appropriate placement. shake out worker tried to send looking for different placement such as [facility] and other place placement. In the meantime, continue with current treatment. Please feel free to call if any questions, telephone #[phone]. Dictated by... Edis Luna M.D. Unit #: [id number] #: [id number] Patient: LILIANE CHAN WILLIAMS/modl TD: 01/21/2017 03:31 JOB #: [id number] CONSULTATION REPORT Page 1 of 1 X Edis Luna MD X CONSULTATION REPORT
--- NOTE | ~2017-01-02 | CO ---
Unit #: [id number] #: [id number] Patient: LILIANE CHAN [id number] [place] [address] [facility]. [place], [place] [address] [id number] I MR#: [id number] NAME: LILIANE CHAN ROOM: 215 Age: 81 Sex: F Admission Date: 01/02/2017 : 1935 Attending Physician: Randy Wolf M.D. Primary Care Physician: Susan Abreu M.D. Consultation Date: 01/08/2017 CONSULTATION REPORT DISCUSSION Ms. Liliane Chan is a 81-year-old female, seen in room 215, bed 1, at [facility] on 01/08/2017. The patient has a sitter. The patient was cooperative and redirectable. Mood was labile. Poor insight, poor judgment, guarded. The patient is needing redirection, but no side effects from medication. No agitation. The patient was eating good. Vital signs; 98, 106, 20, 157/72, oxygen saturation 100%. REVIEW OF SYSTEMS Complete review of systems unremarkable. MENTAL STATUS EXAMINATION General appearance, the patient lying down comfortably in bed, dressed in hospital attire. Attention span and concentration, fair. Oriented in place and person. Mood and affect were labile. Speech, rapid and pressured. Thought process, circumstantial. Association, guarded and paranoid, but denied any thoughts of harming self or others. Recent and remote memory, poor. The patient was aggressive towards staff this morning towards sitter. Insight and judgment, impaired. 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 ASSESSMENT/PLAN 1. Supportive psychotherapy and psychoeducation provided to the patient. 2. Educated about benefits and side effects of medication and course and prognosis of illness. 3. Based on the current examination, the patient is unable to make informed medical decision. Has a poor insight. APS is currently involved recommending at this time to continue with current treatment at this time and look for appropriate placement for the patient, as the patient unable to live by herself at this time for the safety. Dictated by... Edis Luna M.D. [facility]/prisca TD: 01/10/2017 00:43 JOB #: [id number] Unit #: [id number] #: [id number] Patient: LILIANE CHAN CONSULTATION REPORT Page 1 of 1 X Edis Luna MD CONSULTATION REPORT
--- NOTE | ~2017-01-02 | DS ---
Unit #: [id number] #: [id number] Patient: ANSHU CHAN [id number] [address] [address] [id number] I MR#: [id number] NAME: ANSHU CHAN ROOM: 215 Age: 81 Sex: F Admission Date: 01/02/2017 : 1935 Discharge Date: Attending Physician: Lan Weber M.D. Primary Care Physician: Susan Abreu M.D. DISCHARGE SUMMARY SECOND ADDENDA The following medications have been discontinued, as they are not accepted at [facility]: 1. Cogentin 1 mg IM q.4 hours p.r.n. agitation. 2. Haldol injection 5 mg IM q.4 hours p.r.n. severe agitation. 3. Ativan 1 mg IM q.6 hours p.r.n. nervousness. Dictated by... Rudy QuevedoRNixon for Julieth Jimenez/stacia TD: 01/24/2017 15:08 JOB #: [id number] DISCHARGE SUMMARY Page 1 of 1 X Dora Bacon APRN DISCHARGE SUMMARY
--- NOTE | ~2017-01-02 | CO ---
Unit #: [id number] #: [id number] Patient: LILIANE CHAN [id number] [address] [place], [place] [address] [id number] I MR#: [id number] NAME: LILIANE CHAN ROOM: 215 Age: 81 Sex: F Admission Date: 01/02/2017 : 1935 Attending Physician: Nguyễn Ramirez M.D. Primary Care Physician: Susan Abreu M.D. Consultation Date: 01/17/2017 CONSULTATION REPORT DISCUSSION Ms. Liliane Chan is a 81-year-old white female, seen on 01/17/2017, in room 215. The patient has a sitter. The patient's mood continues to be labile, needing redirection and needing a sitter because of agitation, mood lability, bizarre behavior, taking out from her room. The patient's vital signs stable; temperature 97.7, heart rate 78, blood pressure 120/70, and oxygen saturation 98%. Chris friend was called. The patient was trying to leave room, bizarre behavior, and agitation. Subsequently, the patient was given Ativan 1 mg IM, which was effective. The patient needed p.r.n. Ativan last night because of agitation and aggression, still having problem with memory. REVIEW OF SYSTEMS Complete review of systems is unremarkable except as mentioned above. MENTAL STATUS EXAMINATION General appearance, the patient dressed casually in hospital attire. Attention span and concentration was poor. Speech, rapid. Oriented in place and person. Mood and affect were labile. Thought process, circumstantial. Thought content, guarded and paranoid, but denied any thoughts of harming self or others. Recent and remote memory, poor. Language, able to name object and repeat phrases. Fund of knowledge, fair to slightly impaired. Insight and judgment, slightly impaired. DIAGNOSIS Psychiatric: Major neurocognitive disorder secondary to Alzheimer disease with behavioral disturbances, F02.81. ASSESSMENT/PLAN 1. Supportive psychotherapy and psychoeducation provided to the patient. 2. Educated about benefits and side effects of medication and course and prognosis of illness. We will continue with current medication combination and continue with a sitter for the patient's safety. The patient's nursing home social worker is currently working on discharge planning. Please refer to discharge planning note on 01/17/2017. Dictated by... Julieth Abbasi/prisca TD: 01/19/2017 13:42 JOB #: [id number] Unit #: [id number] #: [id number] Patient: LILIANE CHAN CONSULTATION REPORT Page 1 of 1 X Edis Luna MD X CONSULTATION REPORT
--- NOTE | ~2017-01-02 | HP ---
Unit #: [id number] #: [id number] Patient: ANSHU CHAN [id number] [address] [place], [place] [address] [id number] I MR#: [id number] NAME: ANSHU CHAN ROOM: 49370 Age: 81 Sex: F Admission Date: 01/02/2017 : 1935 Attending Physician: Rosa Arevalo M.D. Primary Care Physician: Susan Abreu M.D. HISTORY AND PHYSICAL CHIEF COMPLAINT UTI, confusion and hypokalemia. HISTORY This 81-year-old female with hypertension, degenerative joint disease, dementia, is admitted for confusion. Patient was last admitted to this facility 12/07/2016 for a fall associated with urinary tract infection and hypokalemia. She was seen in consultation by Dr. Luna who thought that likely she did have major neurocognitive disorder secondary to Alzheimer disease with behavioral disturbances. Patient went home. She lives with her dogs. I am told that she was lying on the floor with dog feces around her. Law enforcement had condemned her home. She was brought to his emergency department where she denies complaints. She was found to have a urinary tract infection and hypokalemia again. She states that she does not eat much as she does not want to gain weight, does not really remember what occurred earlier today except that she states that she wanted to lie down on the floor but did not fall and denies urinary symptoms. In the emergency room she was given 40 mEq of potassium and one tablet of Bactrim DS. PAST MEDICAL HISTORY 1. Hypertension. 2. Hyperlipidemia. 3. DJD. 4. Asthma. 5. Dementia. ALLERGIES No known drug allergies. HOME MEDICATIONS P.r.n. albuterol inhaler. FAMILY HISTORY Unobtainable. SOCIAL HISTORY The patient states that she lives with her dogs. She is a lifelong nonsmoker, does not drink alcohol. REVIEW OF SYSTEMS Unit #: [id number] #: [id number] Patient: ANSHU CHAN Difficult to obtain as patient denies any problems. PHYSICAL EXAMINATION GENERAL: Pleasant, mildly hard of hearing 81-year-old female currently in no acute distress. VITAL SIGNS: Temperature 98. Pulse 101. Respirations 16. Blood pressure 156/90. O2 saturation 100% on room air. HEENT: Eyes PERRLA, extraocular muscles are intact. Pharynx is benign. NECK: Supple, without adenopathy or thyromegaly. CHEST: Clear. CARDIAC: Normal S1 and S2, without S3, S4 or murmur. ABDOMEN: Bowel sounds are present. No hepatosplenomegaly, tenderness or masses. There is a reducible umbilical hernia. EXTREMITIES: Mild edema noted bilaterally. Pedal pulses are present. NEUROLOGIC EXAM: Patient is awake, alert. She is oriented to person and place but not to year. Her cranial nerves are intact except that she is hard of hearing. She has equal strength throughout. DIAGNOSTIC STUDIES LABORATORY: Hematocrit is 43.3, normal white count, platelet count. SMA-12: Glucose 123, potassium 2.9. Urine 2+ leukocyte esterase, positive glucose, 100 to 200 red cells, 5 to 10 white cells, 2+ bacteria but many squamous epithelial cells. CARDIOVASCULAR: EKG normal sinus rhythm, rate 93. Q noted in lead III which was noted previously. Unchanged from before. ASSESSMENT 1. Patient was lying on the floor of her house with dog feces around her. House has been condemned by law enforcement. She does not remember what occurred, denies fall. 2. Dementia. 3. Hypokalemia. 4. Urinary tract infection. 5. History of hypertension. Patient takes no medications at present. 6. History of asthma. PLANS 1. Social Work consultation. 2. Replace potassium, check magnesium. 3. Antibiotics pending cultures. 4. Check B12 level, thyroid function test. Dictated by Rosa Arevalo M.D. AML/cf TD: 01/02/2017 21:43 JOB #: [id number] Unit #: [id number] #: [id number] Patient: ANSHU CHAN HISTORY AND PHYSICAL Page 1 of 1 X Rosa Arevalo MD HISTORY AND PHYSICAL
--- NOTE | ~2017-01-02 | CO ---
Unit #: [id number] #: [id number] Patient: LILIANE CHAN [id number] [facility] [address] [facility]. [place], [place] [address] [id number] I MR#: [id number] NAME: LILIANE CHAN ROOM: 215 Age: 81 Sex: F Admission Date: 01/02/2017 : 1935 Attending Physician: Lan Weber M.D. Primary Care Physician: Susan Abreu M.D. Consultation Date: 01/24/2017 CONSULTATION REPORT REASON FOR CONSULTATION Followup. DISCUSSION Ms. Liliane Chan is a 81-year-old female, seen in room 215, bed 1 on 2-E Unit at [facility] on 01/24/2017. The patient was aggressive, impulsive, and threw food at staff. Received Haldol. The patient was aggressive, agitated, paranoid, but currently on Cogentin, haloperidol, Ativan p.r.n. The patient is still having problem with the aggression, mood lability, paranoia. Currently, has one-on-one monitoring. REVIEW OF SYSTEMS Complete review of systems is unremarkable except for agitation. MENTAL STATUS EXAMINATION General appearance; the patient dressed in hospital attire. Attention span and concentration, fair to poor. Speech was rapid. Oriented in place and person. Mood and affect, labile. Thought process, circumstantial. Thought content; guarded and paranoid. Recent and remote memory, poor. Language, fair. Fund of knowledge, fair to slightly impaired. Insight and judgment, impaired. DIAGNOSIS Psychiatric: Major neurocognitive disorder secondary to Alzheimer disease with behavioral disturbances, F02.81. ASSESSMENT/PLAN Advised to continue with current medications, haloperidol p.r.n., Risperdal 1 mg b.i.d., and trazodone 50 mg at bedtime. We will continue to follow. The patient will be going to [place] [facility] Please feel free to call if any questions. Dictated by... Edis Luna M.D. WILLIAMS/prisca TD: 01/25/2017 06:30 JOB #: [id number] Unit #: [id number] #: [id number] Patient: BENNIE CHANIA CONSULTATION REPORT Page 1 of 1 X Edis Luna MD CONSULTATION REPORT
--- NOTE | ~2017-01-02 | DS ---
Unit #: [id number] #: [id number] Patient: ANSHU CHAN [id number] [address] [place], [place] [address] [id number] MR#: [id number] NAME: ANSHU CHAN ROOM: 215 Age: 81 Sex: F Admission Date: 01/02/2017 : 1935 Discharge Date: Attending Physician: Lan Weber M.D. Primary Care Physician: Susan Abreu M.D. DISCHARGE SUMMARY ADDENDUM HOSPITAL COURSE The patient has had no essential change in her condition since the previous transition of care/discharge summary. The patient has continued to be confused with periods of agitation, to the point of throwing a muffin at the nurse this morning at breakfast. The patient has been followed in close consultation by Dr. Edis Luna. Her medications have been adjusted by him and at this time the patient is in bed resting with a sitter at the bedside. The patient has been accepted to [facility] under skin care, with the plan then for the patient to become long-term care status. DISCHARGE MEDICATIONS 1. Albuterol sulfate 3 ml nebulized q.6 h. p.r.n. shortness of air. 2. Tylenol 650 mg p.o. q.4 h. p.r.n. pain. 3. Remeron 15 mg p.o. at bedtime. 4. Desyrel 50 mg p.o. at bedtime p.r.n. sleep. 5. Lomotil 2.5 mg p.o. q.6 h. p.r.n. loose stool. 6. Diphenhydramine/HCL 25 mg p.o. q.4 h. p.r.n. itching. 7. Cogentin 1 mg p.o. q.4 h. p.r.n. severe agitation. 8. Cogentin injection 1 mg IM q.4 h. p.r.n. agitation as an alternate route of administration. 9. Haldol 5 mg p.o. q.4 h. p.r.n. severe agitation. 10. Haldol injection 5 mg IM q.4 h. p.r.n. severe agitation as an alternate rout of administration. 11. Risperdal 1 mg p.o. b.i.d. 12. Ativan 1 mg IM q.6 h. p.r.n. nervousness as an alternate route of administration. 13. Ativan 1 mg p.o. q.4 h. p.r.n. agitation (prescription written by Dr. Weber for Ativan 1 mg 1 p.o. q.4 h. p.r.n. agitation, #10 with no refill). 14. Norvasc 2.5 mg p.o. daily for hypertension. 15. Laxative of choice p.r.n. constipation. 16. Cyanocobalamin 1000 mcg IM q. Friday. DISCHARGE CONDITION Stable. [place] [facility] [place] [facility] Unit and has a bed available today. IV access will be discontinued prior to discharge. Unit #: [id number] #: [id number] Patient: CHAN,ANSHU DIET The patient is to continue with regular diet as tolerated. Please note this patient has been evaluated by and the patient's discharge has been discussed with Dr. Weber. He has cleared the patient for discharge today. Dictated by... Dora Bacon A.P.R.N. for Julieth Jimenez/sarmad TD: 01/24/2017 13:58 JOB #: [id number] DISCHARGE SUMMARY Page 1 of 1 X Dora Bacon APRN X DISCHARGE SUMMARY
--- NOTE | ~2017-01-02 | A ---
[facility] Nutrition Therapy DATE: 01/13/17 Patient: ANSHU CHAN Physician: WILBUR Address: [address] [place] [address] Room/Bed: [address] [place] [address], Zip: [place] [address] Admit Date: 01/02/17 Date of : 39 Height: 5 2 Weight: 129 58.96 NUTRITIONAL ASSESSMENT: REASON: LOS 81 yo female admitted for UTI, confusion, hypoalemia PMH: HTN, HLD, degenerative joint disease, asthma, neurocognitive disorder 2' Alzheimer's disease with behavioral disturbances Anthropometrics: Ht: 5'2" Wt range: 51.4-58.6 kg (113-129#) BMI: 20.7-23.6 Labs: Gluc 112, POC 126 Meds: Zofran, Remeron, NaCl I/O & Bowel function: last BM 01/10 Skin Integrity: Bruises (scattered), hernia (umbrilicus), no edema noted Assessment: Chart reviewed, events noted. Per chart, pt is awaiting guardianship and is currently homeless. Pt was confused during visit. Pt reports good appetite. Per sitter, pt consumes 100% of meals. Pt was getting Ensure shakes prior. See recommendations below. Dx: Inability to manage self-care RT clinical condition, PMH AEB awaiting placement, need for sitter. Intervention: 1. Ensure TID 2. Regular diet Monitoring, Evaluation and Goals: 1. PO intake; consume >75% of meals and supplements 2. Weight; prevent unintentional weight loss, promote weight maintenance 3. Labs; WNL: gluc Recommendations: 1. Order chocolate Ensure shakes TID. 2. Continue to encourage adequate intake. Pt is at a mild nutritional risk. RD will f/u per protocol. [facility] Nutrition Therapy DATE: 01/13/17 Patient: ANSHU CHAN Physician: WILBUR Address: [address] [place] [address] Room/Bed: [address] [place] [address], Zip: [place] [address] Admit Date: 01/02/17 Date of : [birth year] Height: 5 2 Weight: 129 58.96 Respectfully, Marysol Rich, Property And Equipment Clerk Kaiser Maurice MS, RD, LD Food and Nutritional Services [facility] cc: client file
[2017-01-02 16:24] LABS: BASOPHIL# 0.1 X10e3 (0-0.3); BASOPHIL% 0.9 % (0-2.5); EOSINOPHIL# 0.1 X10e3 (0-0.7); EOSINOPHIL% 1.8 % (0.0-7.0); HEMATOCRIT 43.3 % (35.0-45.0); HEMOGLOBIN 14.3 gm/dL (12.0-16.0); LYMPHOCYTE# 1.5 X10e3 (1.0-3.5); LYMPHOCYTE% 19.1 % (17.0-45.0); MEAN CELL VOLUME 86.6 FL (83-96); MEAN CORPUSCULAR HEMOGLOBIN 28.6 PG (28-34); MEAN PLATELET VOLUME 8.8 FL (6.5-11.5); MONOCYTE# 0.9 X10e3 (0-1.0); MONOCYTE% 12.1 % (3.0-12.0); NEUTROPHIL# 5.1 X10e3 (1.5-7.1); NEUTROPHIL% 66.1 % (40-75); PLATELET COUNT 205 X10e3 (140-420); RED CELL DISTRIBUTION WIDTH 14.1 % (11.0-15.5); WHITE BLOOD COUNT 7.7 X10e3 (4.0-10.5)
[2017-01-02 16:37] LABS: DIFF IND NO
[~2017-01-02 16:49] MED LIST changes: +ACETAMINOPHEN650 M1 PO; +LEVAQUIN PO
[2017-01-02 17:06] LABS: BILIRUBIN, DIRECT 0.2 mg/dL (0.0-0.2); BILIRUBIN,INDIRECT 1.1 mg/dL (0.0-0.9); BILIRUBIN,TOTAL 1.3 mg/dL (0.2-2.0); CALCIUM SERUM 9.3 mg/dL (8.4-10.2); GLOM FILT RATE Estimated 53.6 mL/min (>60); PROTEIN TOTAL SERUM 6.7 g/dL (6.0-8.3)
[2017-01-02 17:09] LABS: POTASSIUM 2.9 mmol/L (3.5-5.1)
[2017-01-02 18:14] LABS: URINE SOURCE CLEAN CATCH
[2017-01-02 18:26] LABS: URINE APPEARANCE TURBID; URINE BILIRUBIN NEG (NEG); URINE BLOOD 1+ (NEG); URINE COLOR YELLOW; URINE GLUCOSE 500 MG/DL (NEG); URINE KETONE NEG (NEG); URINE LEUKOCYTE ESTERASE 2+ (NEG); URINE NITRATE NEG (NEG); URINE PH 5.5 (5-8); URINE PROTEIN NEG (NEG); URINE SPECIFIC GRAVITY 1.018 (1.003-1.035)
[2017-01-02 18:29] LABS: CULTURE INDICATED? YES; URBCS1 AUWI 100-200 /[HPF] (0-2); URINE BACTERIA AUWI 2+ (NEGATIVE); URINE SQUAMOUS EPITHELIAL CELL MANY /[HPF]
[2017-01-03] MEDS ORDERED: BAYER CHEWABLE81 MG PO (00:44)
[2017-01-03 07:56] LABS: BASOPHIL# 0.1 X10e3 (0-0.3); BASOPHIL% 1.1 % (0-2.5); EOSINOPHIL# 0.2 X10e3 (0-0.7); EOSINOPHIL% 3.7 % (0.0-7.0); HEMATOCRIT 36.7 % (35.0-45.0); LYMPHOCYTE# 1.8 X10e3 (1.0-3.5); LYMPHOCYTE% 29.4 % (17.0-45.0); MEAN CELL VOLUME 86.6 FL (83-96); MEAN CORPUSCULAR HEMOGLOBIN 28.6 PG (28-34); MEAN PLATELET VOLUME 8.7 FL (6.5-11.5); MONOCYTE# 0.9 X10e3 (0-1.0); MONOCYTE% 14.7 % (3.0-12.0); NEUTROPHIL# 3.1 X10e3 (1.5-7.1); NEUTROPHIL% 51.1 % (40-75); PLATELET COUNT 187 X10e3 (140-420); RED BLOOD COUNT 4.23 X10e (3.90-5.30); WHITE BLOOD COUNT 6.2 X10e3 (4.0-10.5)
[2017-01-03 07:58] LABS: DIFF IND NO; HEMOGLOBIN 12.1 gm/dL (12.0-16.0)
[2017-01-03 08:41] LABS: THYROID STIMULATING HORMONE 0.36 uIU/ml (0.34-5.60)
[2017-01-03 08:47] LABS: BUN/CREATININE RATIO 24.28; CALCIUM SERUM 8.6 mg/dL (8.4-10.2); CREATININE SERUM 0.7 mg/dL (0.6-1.4); GLOM FILT RATE Estimated 82.4 mL/min (>60); MAGNESIUM 2.1 mg/dL (1.6-3.0); POTASSIUM 3.7 mmol/L (3.5-5.1)
[2017-01-03 08:48] LABS: FREE THYROXIN (T4) 1.13 ng/dL (0.58-1.64)
[2017-01-04 08:17] LABS: HEMATOCRIT 41.5 % (35.0-45.0); HEMOGLOBIN 13.5 gm/dL (12.0-16.0); MEAN CELL VOLUME 87.2 FL (83-96); MEAN CORPUSCULAR HEMOGLOBIN 28.4 PG (28-34); MEAN CORPUSCULAR HGB CONC 32.5 g/dL (30-36); RED BLOOD COUNT 4.75 X10e (3.90-5.30); RED CELL DISTRIBUTION WIDTH 13.9 % (11.0-15.5); WHITE BLOOD COUNT 4.5 X10e3 (4.0-10.5)
[2017-01-04 08:46] LABS: BUN/CREATININE RATIO 15.55; CALCIUM SERUM 8.7 mg/dL (8.4-10.2); CREATININE SERUM 0.9 mg/dL (0.6-1.4); GLOM FILT RATE Estimated 60.9 mL/min (>60); MAGNESIUM 2.3 mg/dL (1.6-3.0); POTASSIUM 3.9 mmol/L (3.5-5.1)
[2017-01-05 10:22] LABS: HEMATOCRIT 40.4 % (35.0-45.0); HEMOGLOBIN 13.2 gm/dL (12.0-16.0); MEAN CELL VOLUME 87.3 FL (83-96); MEAN CORPUSCULAR HEMOGLOBIN 28.6 PG (28-34); MEAN CORPUSCULAR HGB CONC 32.7 g/dL (30-36); MEAN PLATELET VOLUME 8.8 FL (6.5-11.5); RED BLOOD COUNT 4.62 X10e (3.90-5.30); WHITE BLOOD COUNT 4.8 X10e3 (4.0-10.5)
[2017-01-05 10:49] LABS: BUN/CREATININE RATIO 21.42; CALCIUM SERUM 8.7 mg/dL (8.4-10.2); CREATININE SERUM 0.7 mg/dL (0.6-1.4); GLOM FILT RATE Estimated 82.4 mL/min (>60)
[2017-01-22 09:06] LABS: CALCIUM SERUM 9.1 mg/dL (8.4-10.2); CREATININE SERUM 0.7 mg/dL (0.6-1.4); GLOM FILT RATE Estimated 82.4 mL/min (>60); POTASSIUM 4.5 mmol/L (3.5-5.1)
[2017-01-23 11:07] LABS: HEMATOCRIT 48.2 % (35.0-45.0); HEMOGLOBIN 15.8 gm/dL (12.0-16.0); MEAN CELL VOLUME 88.2 FL (83-96); MEAN CORPUSCULAR HGB CONC 32.8 g/dL (30-36); MEAN PLATELET VOLUME 7.3 FL (6.5-11.5); RED BLOOD COUNT 5.47 X10e (3.90-5.30); RED CELL DISTRIBUTION WIDTH 14.2 % (11.0-15.5); WHITE BLOOD COUNT 7.2 X10e3 (4.0-10.5)
[2017-01-23 11:32] LABS: BUN/CREATININE RATIO 23.33; CALCIUM SERUM 9.7 mg/dL (8.4-10.2); CREATININE SERUM 0.6 mg/dL (0.6-1.4); GLOM FILT RATE Estimated 86.7 mL/min (>60); MAGNESIUM 2.4 mg/dL (1.6-3.0); POTASSIUM 4.1 mmol/L (3.5-5.1)
== END 2017-01-24 15:57 | DRG 689 ==
LOC: CED 16:49 → CEDOF 21:07 → C5C 23:58 → C2A 01-05 08:33
PROVIDERS: Emergency Medicine; Family Medicine; Internal Medicine; Physician Assistant Medical
DX: N39.0 Urinary tract infection, site not specified (principal); G92 Toxic encephalopathy; F05 Delirium due to known physiological condition; F02.81 Dementia in other diseases classified elsewhere, unspecified severity, with behavioral disturbance; G30.9 Alzheimer's disease, unspecified; R41.82 Altered mental status, unspecified; I10 Essential (primary) hypertension; R62.7 Adult failure to thrive; E87.6 Hypokalemia; M19.90 Unspecified osteoarthritis, unspecified site; J45.909 Unspecified asthma, uncomplicated; B96.20 Unspecified Escherichia coli [E. coli] as the cause of diseases classified elsewhere; Z59.0 Homelessness; F32.9 Major depressive disorder, single episode, unspecified
CPT/HCPCS: 36415; 80048; 80076; 81003; 82607; 82947; 83735; 84439; 84443; 85025; 85027; 87086; 87088; 87186; 93005; 94640; 94760; 99285; J0515; J0696; J1630; J1650; J1956; J2060; J3420